=== PATIENT | male | born 1930 | race Caucasian/White ===

== ENCOUNTER 2017-01-20 19:06 | Emergency (ER) | payer MEDICARE, BC ==
--- NOTE | ~2017-01-20 | ER ---
PATIENT'S NAME: MELONIE ATKINSON [facility] [place] AGE: 86 Y [address] ROOM: [place] [address] LOCATION: [facility] ADMIT DATE: 01/20/2017 ER/Outpatient Report DISCHARGE DATE: 01/20/2017 FAMILY PHYSICIAN: Andrea Gudino MD ATTENDING PHYSICIAN: Zak Rinaldi TIME SEEN: 1906 hours. CHIEF COMPLAINT: Fall and injury to the right arm. HISTORY OF PRESENT ILLNESS: The patient was getting up from his chair, he was using a walker, he became lightheaded, and fell forward striking his right arm on the coffee table. He has extensive skin tears on the right arm. 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 King Gudino for this. PAST OPERATIONS: Include craniotomy, appendectomy, transurethral resection of the prostate, transurethral resection of bladder tumors, and prostatectomy. ALLERGIES: NONE. HOME MEDICATIONS: 1. Zyloprim. 2. Bumetanide. 3. Colace. 4. Corlanor. 5. Digoxin. 6. DuoNeb. 7. Eliquis. 8. Fish oil. 9. Furosemide. 10. Iron 325. 11. Magnesium 250. 12. Mexiletine hydrochloride. 13. Milk of magnesia. PATIENT'S NAME: MELONIE ATKINSON [facility] [place] AGE: 86 Y [address] ROOM: [place] [address] LOCATION: [facility] ADMIT DATE: 01/20/2017 ER/Outpatient Report DISCHARGE DATE: 01/20/2017 FAMILY PHYSICIAN: Andrea Gudino MD ATTENDING PHYSICIAN: Zak Rinaldi 14. MiraLAX. 15. Mucinex. 16. Omeprazole. 17. Potassium chloride. 18. Symbicort. 19. Synthroid. 20. Extra Strength Tylenol. REVIEW OF SYSTEMS: CONSTITUTIONAL: The patient denies any recent weight loss or weight gain. He has no fevers, chills, or sweats. He admits that he has been falling more; however, his last fall was in November. He reports that he is dizzy nearly everyday and that he has had extensive workup for this and they really cannot find a reason for his dizziness. HEENT: He denies any headache. No vision changes. He has not had any upper respiratory illnesses. CARDIOVASCULAR: He denies any chest pain or palpitations. RESPIRATORY: He is always short of breath. He states it has been a little bit worse today. He always has a cough. He did recently have pneumonia and has been out of the hospital for about 2 weeks. GI: No nausea, vomiting, diarrhea, or constipation. : He denies any complaints of urgency, frequency, or dysuria. NEURO: No confusion. No new weakness. No new dizziness. MUSCULOSKELETAL: No myalgias or arthralgias that are new. HEMATOLOGY: He does admit to bruising quite easily, but has not noted any new bleeding. SKIN: Skin tear on the right arm for which the patient is in the emergency room this evening. ENDOCRINE: No complaints. PSYCH: No complaints. PHYSICAL EXAMINATION: VITAL SIGNS: Heart rate of 84, respiratory rate of 20, temperature 98.4, and blood pressure 138/60. Orthostatic blood pressures were performed lying 115/67, sitting 109/59, and standing 134/63, there is no significant change in heart rate. GENERAL APPEARANCE: Elderly frail man who does require some assistance getting from wheelchair to bed. HEENT: Head is normocephalic and atraumatic. Eyes: PERRL. EOMs are intact. TMs pearly martinez with light reflex bilaterally. Nose: Turbinates are pink without rhinorrhea. Pharynx is without edema or erythema. Mucous membranes are moist. NECK: Supple. Trachea midline. No JVD. No lymphadenopathy. LUNGS: Decreased throughout with faint scattered wheezes. HEART: Rate and rhythm are regular. Heart sounds are diminished. No murmurs PATIENT'S NAME: MELONIE ATKINSON [facility] [place] AGE: 86 Y [address] ROOM: [place], [place] [address] LOCATION: [facility] ADMIT DATE: 01/20/2017 ER/Outpatient Report DISCHARGE DATE: 01/20/2017 FAMILY PHYSICIAN: Andrea Gudino MD ATTENDING PHYSICIAN: Zak Rinaldi noted. ABDOMEN: Soft, nontender, and nondistended. Bowel sounds are present in all 4 quadrants. EXTREMITIES: Mild peripheral edema. Full range of motion without any pain. NEURO: Cranial nerves 2 through 12 are intact. Motor strength is 4/5 bilaterally in upper and lower extremities. His gait is unsteady. He does use a walker at home and moves very slowly from [id number]. No nuchal rigidity. IMPRESSION/ASSESSMENT: Extensive skin tear to the right arm. EMERGENCY DEPARTMENT COURSE: The wound was thoroughly cleansed with Betadine and saline. The loose skin was approximated as well as possible and glued to the edge. This tissue will likely , but in the interim covers the wound nicely. The area measures 2/3rd of the right forearm on the posterior surface and the skin is rolled proximally toward the elbow. This was pulled down and glued as mentioned. There is also a tear on the posterior surface of the upper arm where the skin is just held in place with nonadhering bandage. He has 2 or 3 other very small skin tears that are included in the bandage. The entire area is covered with nonadherent material and then an absorbent ABD and then wrapped in place with Elaina. DISPOSITION AND PLAN: The patient had planned to follow up with Dr. King Gudino tomorrow just regarding his overall health and instead they will plan to visit Dr. Gudino and have the wound evaluated in addition to an evaluation for what he feels is somewhat increased in his difficulty breathing. Tetanus immunization was approximately 3 years ago according to the patient. This care was discussed with Dr. Rinaldi and he did evaluate the wounds with me. AMAURY KIM, [employer] REPAIRER FOR ZAK RINALDI MD DP/annemarie /[id number] d: 01/21/17 0415 t: 02/10/17 0701, OUTPATIENT REPORT
[~2017-01-20 19:06] MED LIST: ALDACTONE25 MG PO; AMARYL4 M1 PO; ASPIR 8181 MG PO; ASPIRIN (CHILDR81 MG PO; ATIVAN 0.5MG0.5 MG PO; CLOPIDOGREL75 MG PO; DELTASONE20 MG PO; DUONEB INH; ENTRESTO 24 MG1 EACH PO; FISH OIL1000 MG PO; FLORASTOR250 MG PO; IPRAT-ALBUT 0.5-3 ML INH; K-TAB 10MEQ10 MEQ PO; LANOXIN (DIGI125 MCG PO; LANOXIN62.5 MCG PO; LASIX40 M1 PO; LASIX40 MG PO; LASIX80 M1 PO; LEVAQUIN750 MG PO; LEVOTHROID (SY25 MCG PO; MAGNESIUM250 M1 PO; MAGNESIUM400 MG PO; MAGOX 400400 MG PO; MELATONIN10 M2 PO; METAMUCIL PACKE1 PKT PO; MEXITIL250 MG PO; MIRALAX17 GM PO; MUCINEX1200 MG PO; NITROGLYCERIN TOP; NITROSTAT0.4 MG SL; OSCAL PO; OXYGEN INH; OXYGEN NOSE; PRADAXA75 MG PO; PRILOSEC20 M1 PO; PRILOSEC20 MG PO; SYMBICORT 16010.2 GM INH; TRAMADOL HCL50 MG PO; TYLENOL PM EX-1 EACH PO; TYLENOL325 MG PO; ULTRAM50 MG PO; ZYLOPRIM300 MG PO; [UNRECOGNIZED DRUG - OTHER] PO
== END 2017-01-20 20:42 | disposition disaster alternative care site (69) ==
LOC: GACC 19:06
PROC: 0HQBXZZ Repair Right Upper Arm Skin, External Approach (ICD-10-PCS; principal; 2017-01-20)
DX: S41.111A Laceration without foreign body of right upper arm, initial encounter (principal); I25.10 Atherosclerotic heart disease of native coronary artery without angina pectoris; Z90.49 Acquired absence of other specified parts of digestive tract; Z98.890 Other specified postprocedural states; Z90.79 Acquired absence of other genital organ(s); Z79.899 Other long term (current) drug therapy; W20.8XXA Other cause of strike by thrown, projected or falling object, initial encounter